=== PATIENT | male | born 2000 | race Caucasian/White ===

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

== ENCOUNTER 2022-07-25 14:00 | Emergency (ER) | payer OTHER, SELFPAY ==
[2022-07-25 14:18] VITALS: BP 139/61; PULSE 62; RESP 12; TEMP 37; O2SAT 98
--- NOTE | 2022-07-25 14:46 | ED.EYEPROB ---
HPI - Eye Problem General Chief complaint: Eye Problems Stated complaint: Lt Eye Irritation Time Seen by Provider: 07/25/22 14:20 Source: patient Mode of arrival: ambulatory Limitations: no limitations History of Present Illness HPI Narrative: 22-year-old male presents with complaint of left eye pain. Patient reports this morning he was working and got sawdust into his left eye while cutting a piece of wood. Was not wearing his safety glasses. Reports since and pain getting smaller worse with clear redness and light sensitivity. All systems reviewed and negative except as noted above. Related Data Allergies Allergy/AdvReac Type Severity Reaction Status Date / Time No Known Allergies Allergy Verified 07/25/22 14:22 Review of Systems Review of Systems: CONSTITUTIONAL: Denies fever, chills, or sweats. EYES: Reports redness, clear drainage and pain to left eye. ENT: Denies rhinorrhea, congestion, sore throat, or otalgia. CARDIOVASCULAR: Denies chest pain, palpitations, or edema. RESPIRATORY: Denies cough or dyspnea. GASTROINTESTINAL: Denies abdominal pain, nausea, vomiting, or diarrhea. GENITOURINARY: Denies dysuria or hematuria. SKIN: Denies rash or itching. MUSCULOSKELETAL: Denies back pain, joint pain, or myalgia. NEUROLOGIC: Denies headache, numbness, or weakness. PSYCHIATRIC: Denies anxiety or depression. All other systems reviewed are negative, except as documented in HPI. FORMERLY [facility] Family History Family History Father Hypertension Mother Hypertension Social History Social History Smoking status: Never smoker Alcohol intake: never Living arrangements: with family Additional living arrangements comments: Father, Mother, Brother Occupation/Education: student Gender identity (if verbalized by the patient): Male Comments At time of signature, agree with nursing past medical, surgical, social and family history. There is no relevant family history pertinent to the presenting complaint. Exam Narrative: GENERAL: This is a well-nourished, well-developed patient, in no apparent distress. HEAD: normocephalic, atraumatic. EYES: PERRL. Sclera And conjunctiva erythematous to left eye. Clear drainage left eye. Topical anesthetic was instilled with good anesthesia [id number] of opth anesthetic agent (tetracaine). Fluorescein stain of the L eye was performed. Foreign body detected over the cornea with Moderately sized corneal abrasion. irrigated with normal saline. Fluorescein stained again to left eye and foreign body resolved. patient tolerated the procedure well, no adverse reaction or complications. EARS: External ears normal NOSE: External nose normal NECK: Neck supple, non-tender without lymphadenopathy, masses or thyromegaly. CARDIOVASCULAR: Regular rate and rhythm without murmurs, gallops, or rubs. RESPIRATORY: Clear to auscultation. Breath sounds equal bilaterally. No wheezes, rales, or rhonchi. SKIN: warm, Dry, intact with no suspicious lesions or rash, good texture and turgor. NEURO: awake, alert, and oriented to person, place and time. There were no obvious focal neurologic abnormalities. EXTREMITIES: No joint tenderness, effusion, or edema noted. Course Course Level of Care: Express Care Visit Vital Signs Vital signs: Vital Signs Temperature 37.0 C 07/25/22 14:18 Pulse Rate 62 07/25/22 14:18 Respiratory Rate 12 07/25/22 14:18 Blood Pressure 139/61 07/25/22 14:18 Pulse Oximetry 98 07/25/22 14:18 Oxygen Delivery Room Air 07/25/22 14:18 Temperature 37.0 C 07/25/22 14:18 Pulse Rate 62 07/25/22 14:18 Respiratory Rate 12 07/25/22 14:18 Blood Pressure 139/61 07/25/22 14:18 Pulse Oximetry 98 07/25/22 14:18 Oxygen Delivery Room Air 07/25/22 14:18 Reviewed Procedures Other Procedure Procedure 1: Other Procedure:
== END 2022-07-25 14:44 | disposition home or self-care (01) ==
PROVIDERS: Emergency Provider Nurse Practitioner Family
DX: S05.02XA Injury of conjunctiva and corneal abrasion without foreign body, left eye, initial encounter (principal); X58.XXXA Exposure to other specified factors, initial encounter; Y99.0 Civilian activity done for income or pay
CPT/HCPCS: 99213; A9270; G0463